=== PATIENT | female | born 1945 | race Caucasian/White ===

== ENCOUNTER 2018-08-25 08:55 | Inpatient (IN) | payer OTHER ==
[2018-08-19 15:36] LABS: Absolute Lymphocytes (CBC) 1.4 K/uL (0.7-4.9); Absolute Monocytes 0.5 K/uL (0.1-1.3); Absolute Neutrophil 2.9 K/uL (1.8-8.0); Basophils % 1.6 % (0-1.3); Eosinophils % 4.8 % (0-4.4); Hematocrit 32.6 % (36.0-45.0); Lymphocytes % 27.5 % (15.3-44.8); MPV 9.7 fL (7.6-11.3); Monocytes % 9.9 % (3.3-12.3); RBC Red Blood Cell Count 3.89 M/uL (3.86-4.86)
--- NOTE | 2018-08-19 15:45 | RAD REPORT ---
EXAM DESCRIPTION: RAD - Chest Pa And Lat (2 Views) - 08/19/2018 3:12 pm CLINICAL HISTORY: preop Chest pain. COMPARISON: Chest Single View dated 03/14/2017; Chest Single View dated 10/25/2016; CHEST PA AND LAT 2 VIEW dated 01/09/2012; CHEST SINGLE VIEW dated 01/24/2010 FINDINGS: The lungs are clear. The heart is normal in size. No displaced fractures. Moderate axial h iatal hernia. IMPRESSION: Moderate axial hiatal hernia.
[2018-08-19 15:49] LABS: Potassium 3.6 mmol/L (3.5-5.1)
--- NOTE | 2018-08-24 11:22 | EKG ---
Test Date: 2018-08-19 Test Time: 14:59:02 Dynamometer Tuner: ASHISH MEASUREMENT RESULTS: Intervals: Rate: 71 IA: 220 QRSD: 74 QT: 378 QTc: 410 [place]: P: 53 IA: 220 QRS: 64 T: 50 INTERPRETIVE STATEMENTS: Sinus rhythm with 1st degree AV block Otherwise normal ECG Compared to ECG 03/14/2017 21:30:38 First degree AV block now present Electronically Signed On 08-19-18 16:25:25 CDT by Ray Cheung
--- OUTSIDE RECORDS SUMMARY | 2018-08-25 08:58 | XMS REPORT | Clinical Summary ---
:1945 Author Organization [facility] Address [address] [place] [address] Care Team Providers Name Role Phone Misbah Osorio MD Primary Care Provider Allergies No Known Allergies Medications Medication Sig Dispensed Refills Start Date End Date Status metFORMIN (GLUCOPHAGE) Take 500 mg by 0 Active 500 MG tablet mouth 2 (two) times a day with meals. Hold the morning of surgery . Takes 1 tab in AM and 1/2 tab at night. PARoxetine (PAXIL) 20 Take 20 mg by 0 Active MG tablet mouth every morning. atorvastatin (LIPITOR) Take 40 mg by 0 Active 40 MG tablet mouth daily. aspirin (ECOTRIN) 81 Take 81 mg by 0 Active MG enteric coated mouth daily. tablet traMADol (ULTRAM) 50 Take 50 mg by 0 Active mg tablet mouth every 6 (six) hours as needed for moderate pain. omeprazole (PriLOSEC) Take 40 mg by 0 Active 40 MG capsule mouth daily. 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 Last Filed Vital Signs Not on file Plan of Treatment Health Maintenance Due Date Last Done Comments BREAST CANCER SCREENING 1994 COLON CANCER SCREENING 1994 SHINGLES VACCINES (#1) 1994 65+ PNEUMOCOCCAL VACCINE (1 of 2 - PCV13) 2009 PNEUMOCOCCAL POLYSACCHARIDE VACCINE AGE 65 AND OVER 2009 INFLUENZA VACCINE 12/16/2018 03/23/2017 Implants Implanted Type Area Grinder Mill Operator Device Shelf Model / Identifier Expiration Serial / Date Lot Clip Ligtng Weck Hemoclip Plus W/ Tape Ti Med - [id number] Medical N/A: N/A TELEFLEX MEDICAL [id number] / Implanted: 03/17/2017 (Quantity not on file) Clips for / Internal Use Clip Ligtng Weck Hemoclip Plus W/ Tape Ti Lg - [id number] Medical N/A: N/A TELEFLEX MEDICAL [id number] / Implanted: 03/17/2017 (Quantity not on file) Clips for / Internal Use Clip Ligtng Weck Hemoclip Plus W/ Tape Ti Lg - [id number] Medical N/A: N/A TELEFLEX MEDICAL [id number] / Implanted: 03/17/2017 (Quantity not on file) Clips for / Internal Use Fibrin Sealant Patch Evarrest - [id number] Surgical N/A: N/A ETHICON 01/12 [id number] / Implanted: 03/17/2017 (Quantity not on file) Implants; ENDO-SURGERY / Expanders; 1728 Extenders; Surgical Wires Results Not on fileafter 08/24/2017 Insurance Payer Benefit Plan / Group Subscriber ID Type Phone Address HUMANA MEDICARE HUMANA MEDICARE PPO/PFFS/ERS [facility] xxxxxxxxx PPO ([place] [place] [id number] Advance Directives Patient has advance care planning documents on file. For more information, please contact:Raman [place] [address]
[2018-08-25] MEDS ORDERED: NA CHLORIDE 0.9% 1,000 ML ONE (09:19)
[2018-08-25] MEDS ORDERED: CEFAZOLIN/SWI 1gm 1 GM/10 ML SYR ONE (09:19)
[2018-08-25] MEDS ORDERED: BUPIVACAINE 0.5% PF 10 ML VIAL ONE (09:26)
[2018-08-25] MEDS ORDERED: ROCURONIUM 50 MG/5 ML VIAL IV ONE (09:46)
[2018-08-25] MEDS ORDERED: FENTANYL CITR 100 MCG/2 ML ONE ×2 (09:53→10:45)
[2018-08-25] MEDS ORDERED: PROPOFOL 200 MG/20 ML VIAL IV ONE (09:53)
[2018-08-25] MEDS ORDERED: LIDOCAINE 2% MPF 5 ML VIAL ONE (09:53)
[2018-08-25] MEDS ORDERED: MIDAZOLAM HCL 2 MG/2 ML INJ ONE (09:53)
[2018-08-25] MEDS ORDERED: EPHEDRINE SULF 50 MG/ML VIAL ONE (10:00)
[2018-08-25] MEDS ORDERED: ONDANSETRON 4 MG/2 ML VIAL ONE (10:06)
[2018-08-25] MEDS ORDERED: Ringers Lactate 1,000 ML IV ONE (11:31)
[2018-08-25] MEDS ORDERED: ONDANSETRON 4 MG/2 ML VIAL IV PRN (11:54)
[2018-08-25] MEDS ORDERED: HYDROCODONE/APAP 7.5/325 MG TAB PO PRN (11:54)
--- NOTE | 2018-08-25 11:54 | P.BOP ---
Preoperative diagnosis: large incarcerated with large bowel incisional ventral hernia Postoperative diagnosis: same plus extensive intrabdominal adhesions, multiple ventral hernias Primary procedure: Exploratory laparoromy, extensive lap and open lysis of adhesions Secondary procedure: Repair of incisional incercerated upper and mid ventral hernias with mesh Other procedure(s): Laparoscopic assisted Dip Painter: CHALINO PATEL (MACHINE OPERATOR HOP WORKER) Estimated blood loss: <50cc Specimen: hernia sac Findings: Extensive intrabdominal adhesions, incarcerated transverse colon and omentu Anesthesia: General Complications: None Implants: ventralight ST mesh with echo PS [id number] Transferred to: Recovery Room Condition: Good
[2018-08-25] MEDS ORDERED: GLYCOPYRROLATE 0.2 MG/ML SYR ONE (11:55)
[2018-08-25] MEDS ORDERED: NEOSTIGMINE 1 MG/ML -10 ML VIAL ONE (11:56)
[2018-08-25] MEDS ORDERED: KETOROLAC 30 MG/ML INJ ONE (11:56)
[2018-08-25] MEDS ORDERED: MORPHINE 10 MG/ML VIAL ONE (12:12)
[2018-08-25] MEDS: MORPHINE 4 MG/ML SYR IV PRN ×3 (12:50→21:42)
[2018-08-25] MEDS ORDERED: MORPHINE 2 MG/ML SYR IV ONE (13:25)
[2018-08-25] MEDS: MORPHINE 4 MG/ML SYR ONE ×2 (13:40→13:45)
[2018-08-25] MEDS: FENTANYL CITR 100 MCG/2 ML ONE ×2 (13:51→13:59)
[2018-08-25] MEDS: NA CHLORIDE 0.9% 1,000 ML IV SCH (14:51)
[2018-08-25] MEDS: CEFOXITIN/SWI 1gm 1 GM/10 ML SYR IV SCH ×2 (15:05→21:37)
[2018-08-25 15:29] VITALS: BMI 26.1
[2018-08-26] MEDS: NA CHLORIDE 0.9% 1,000 ML IV SCH ×5 (01:08→22:33)
[2018-08-26] MEDS: CEFOXITIN/SWI 1gm 1 GM/10 ML SYR IV SCH (01:09)
[2018-08-26] MEDS: MORPHINE 4 MG/ML SYR IV PRN ×5 (01:13→20:59)
[2018-08-26] MEDS: PANTOPRAZOLE 40MG TABLET PO SCH (05:35)
[2018-08-26 05:44] LABS: Absolute Lymphocytes (CBC) 0.4 K/uL (0.7-4.9); Absolute Monocytes 1.5 K/uL (0.1-1.3); Absolute Neutrophil 9.8 K/uL (1.8-8.0); Basophils % 0.4 % (0-1.3); Eosinophils % 0.1 % (0-4.4); Hematocrit 28.7 % (36.0-45.0); Lymphocytes % 3.7 % (15.3-44.8); MPV 8.9 fL (7.6-11.3); Monocytes % 12.6 % (3.3-12.3); RBC Red Blood Cell Count 3.37 M/uL (3.86-4.86)
[2018-08-26 05:50] LABS: Potassium 3.9 mmol/L (3.5-5.1)
[2018-08-26 06:45] LABS: Urine Appearance CLEAR; Urine Bilirubin NEGATIVE (NEG); Urine Blood NEGATIVE (NEG); Urine Color YELLOW; Urine Glucose 1+ (NEG); Urine Protein NEGATIVE (NEG); Urine Urobilinogen 0.2 mg/dL (0.2-1.0)
[2018-08-26 06:48] LABS: Urine Microscopic Reflex NO UMIC
--- NOTE | 2018-08-26 23:27 | P.PN ---
Subjective Date of Service: 08/26/18 Subjective: Ambulating, Improving, Doing well Review of Systems General: Unremarkable Eyes: Unremarkable ENT: Unremarkable Respiratory: Unremarkable Cardiovascular: Unremarkable Gastrointestinal: Melena (no), Hematochezia (no) Genitourinary: Unremarkable Physical Examination - Vital Signs Temperature: 99.2 F Blood Pressure: 123/67 Pulse: 88 Respirations: 16 Pulse Ox (%): 92 - Physical Exam General: Alert, In no apparent distress, Oriented x3, Cooperative HEENT: PERRLA, EOMI Neck: Supple Respiratory: Normal air movement Cardiovascular: No edema, Normal pulses Gastrointestinal: Hypoactive, Other (intact surgical site) Integumentary: No erythema, No warmth, No cyanosis Neurological: Normal speech - Studies Laboratory Data (last 24 hrs) 08/26/18 04:56: Sodium 144, Potassium 3.9, BUN 19 H, Creatinine 0.91, Glucose 214 H 08/26/18 04:56: WBC 11.8 H D, Hgb 8.6 L, Hct 28.7 L, Plt Count 227 D Assessment And Plan - Plan OOB IS Clear liquid PAin controll FS with coverage resume home meds
[2018-08-26] MEDS ORDERED: D50W 25 GM/50 ML SYRINGE IV PRN (23:53)
[2018-08-26] MEDS ORDERED: GLUCAGON 1 MG/VIAL IM PRN (23:53)
[2018-08-27] MEDS: MORPHINE 4 MG/ML SYR IV PRN ×2 (04:12→12:27)
[2018-08-27 04:25] VITALS: O2SAT 95
[2018-08-27] MEDS: PANTOPRAZOLE 40MG TABLET PO SCH (06:33)
[2018-08-27] MEDS: INSULIN -REGULAR HUMAN 50 UNIT/0.5 ML ML SQ SCH ×3 (07:30→16:30)
[2018-08-27] MEDS ORDERED: LISINOPRIL 10 MG TAB PO SCH (09:00)
[2018-08-27] MEDS ORDERED: PARoxetine HCl 10 MG TAB PO SCH (09:00)
[2018-08-27] MEDS ORDERED: hydroCHLOROthiazide 12.5 MG CAP PO SCH (09:00)
[2018-08-27] MEDS ORDERED: GABAPENTIN 100 MG CAP PO SCH (09:00)
[2018-08-27] MEDS: NA CHLORIDE 0.9% 1,000 ML IV SCH ×2 (09:02→14:00)
--- NOTE | 2018-08-27 14:39 | RAD REPORT ---
EXAM DESCRIPTION: RAD - Chest Pa And Lat (2 Views) - 08/27/2018 2:29 pm CLINICAL HISTORY: Pneumonia COMPARISON: August 19 TECHNIQUE: PA and lateral views of the chest were obtained. FINDINGS: The lungs are clear of failure, infiltrate or mass. Patient has a prominent baseline inter stitial pattern that matches the comparison. Moderate-size hiatal hernia again noted. Heart size is normal and central vasculature is within normal limits. No pleural effusion or pneu mothorax seen. No acute bony finding noted. No aortic abnormality. IMPRESSION: No acute cardiopulmonary process. Chest findings are not significantly different from A pril 4 imaging.
[2018-08-27 17:44] VITALS: BP 135/76; TEMP 98.8
--- NOTE | 2018-08-29 09:48 | CON ---
Date of Consultation: 08/27/2018 Reason For Consultation: Hypoxemia. History: A 72-year-old, the patient, who was found to have episodes of hypoxia measured by digital o ximetry. Patient is postop for her abdominal hernia repair. Patient denied any chest pain, shortnes s of breath, any other symptoms at the time of examination. No history of hemoptysis. Past Medical History: Positive for diabetes and hypertension. Physical Examination: General: Reveals a 72-year-old female, fully alert and oriented. HEENT: Negative. Neck: Supple. JVD negative. Chest: Clear. Heart: Regular. Abdomen: Soft postoperative. Extremities: No edema. Assessment: 1.Hypoxia. 2.Status post abdominal hernia surgery. Plan: The patient was taken off O2 completely for 15 minutes. Her saturation was found to be 97. H er chest x-ray repeat is negative in view of no symptoms and normal oxygen saturation currently. Luis Miguel y likely, patient had mucus plugging or other postoperative transient ventilatory issue. Patient was observed and as she does not have any symptoms, patient was advised discharge and she was told to follow up in the office in case she has a ny pulmonary symptoms. RRK/MODL Voice ID: [id number] Report ID: [id number]
--- NOTE | 2018-08-31 05:29 | OP ---
Date of Procedure: 08/25/2018 Surgeon: Vitor Connell MD Duplicating Machine Servicer: JULIO Arenas. Preoperative Diagnosis: Large incarcerated with large bowel incisional ventral hernia. Postoperative Diagnosis: Large incarcerated with large bowel incisional ventral hernia, extensive in tra-abdominal adhesions, multiple ventral hernias. Procedures: Exploratory laparotomy, extensive laparoscopic and open lysis of adhesions, repair of mu ltiple incisional incarcerated upper and mid ventral hernias with mesh, laparoscopically assist. Estimated Blood Loss: Less than 50 cc. Specimen: Hernia sac. Findings: Extensive intra-abdominal adhesions. We took a little more than an hour just doing an adh esion . The patient has multiple hernias in the mid abdomen and then upper abdomen. These hernias fascia were repaired individually, although we used 1 incision on top. The hernia, one of t hem has transverse colon coming through it with a lot of adhesions through. That slowly needs to be released and brought back into the abdominal cavity. In order for us to do this even though we made a small incision at the beginning, we noticed there were 2 hernias, so we have to extend the incision and do a formal laparotomy since the adhesions were a large. Some of the adhesions, the most diffic ult one in the lower abdomen to avoid having to open the entire incision, we did it laparoscopically after we did a diagnostic lap. Also laparoscopic technique was used to put the mesh underneath with use of Ventralight ST mesh with Echo Positioning System, about 25 x 20 cm. Indications: This is the case of a female, who comes to us with multiple inflations. She has hiatal hernia repair in the past, first laparoscopic, then it got complicated and she has to have an open w ith a midline incision. Then, she noticed a bulging on the abdomen, diagnosed with incarcerated vent ral hernias with large bowel on it. The benefits, alternatives, and risks of repair were fully expla ined to the patient, which include but are not limited to infection, bleeding, damage to adjacent str uctures, anesthesia complication, recurrence, [place], and even . She also understands this may not relieve the symptoms, she might need more than one surgical intervention. She understand we most lik jamie going to have to use mesh in that area. She had the area opened several times. We expect that t o show some weak fascia. She understands the pros and cons of mesh placement. It was explained to h er until all the answer we given to her questions. She also understands that we may have extensive a dhesions, may even do a bowel resection, hopefully not, but she is aware of that. She understands in the future it is important to use abdominal binder for a year, no heavy lifting, not gaining weight. She signed a consent. Description Of Procedure: The patient was brought to the operating room, placed in supine position. Anesthesia was done without complication. Abdominal area was prepped and draped in a sterile fashio n. A midline incision was made. Incision was carried down to fascia. Immediately, we noticed a lar ge hernia sac present, large bowel, transverse colon, attached to it. So, we carefully have to relea se the adhesions of the large bowel to the hernia sac and then after that, we noticed the fascial edg es and we have to clean all the fascial edges and we noticed once again extensive adhesions inside. We spent more than an hour just doing adhesions there, just slowly getting they, and be careful not t o injure the large bowel, which was attached to it. Most of adhesions were removed open with the for mal laparotomy, although some other ones were done laparoscopically with the LigaSure since we were g oing to do anyway laparoscopic to do a mesh placement. Once we relieved those adhesions there, we pr oceeded to inspect the rest of the abdomen. We noticed the patient has another hernia in the upper v entral region, just below the xiphoid process. That area was also opened in the skin and we visualiz ed the fascial edges. We removed the hernia sac. That one mainly had the falciform ligament regulatory affairs portfolio leader d to that area. We carefully reduced it back into the abdominal cavity. The fascial edges were clos ed with #2 nylon in a [id number] fashion multiple times. Then, we went back to the large ventra l region, where we have the main hernia there and close that defect and approximated the defects with #2 nylon in a vweqrf-ri-mqgwh fashion multiple times. Before we tied those tissues, we were able to drop in a Ventralex ST with an Echo Positioning System about 25 x 20 cm, that will cover the defects by about 5 cm with 5 cm margins at least. After that, we proceeded to also put two 5-mm trocars, si nce we have access and we can see with laparotomy, we put this directly into the abdomen making sure there was no injury to any bowel. That allowed me to tie all the stitches on the ventral region exce pt 1 which is the where the catheter with the balloon insufflation is coming through, that will be ti ed at the end. That allowed me to obtain pneumoperitoneum, put the cameras #5 then in this case thro ugh the abdomen and then inflate the balloon positioning system, this goes against the abdominal wall . When we noticed that the falciform ligament, it was just in our way, adhesions in that area, so we had to take care of those with LigaSure. Also some adhesions in the lower abdomen, that were on our way, not allowing the mesh to lie nice and flat, were also removed and then we removed those adhesio ns and then we proceeded then to put the mesh, it looked nice and flat. The mesh was secured in plac e with a capture, a fixation device. Then, when we had enough in that area, we proceeded to deflate the balloon, removed the balloon completely out, and then basically continued the fixation of the mes h into the fascia. The mesh looked nice and flat. No bowel in between. The area of the lysis of ad hesions looked intact. No bleeding. No enterotomies. At that moment, I proceeded to remove the tro cars under direct vision, deflated the pneumoperitoneum, closed the last stage that we have in the fa scia, irrigated subcu tissue. We have defect in the middle that we afraid she is going to form a ser wanda. So, we tried to approximate that area with 0 chromic the best we can to obliterate this space, although some of that space created by the hernia itself. The skin then was approximated with staple s. Sponge count and instrument counts were correct. The patient tolerated the procedure well. The patient was sent to recovery in stable condition. This patient will be admitted to the [facility] she will require pain control and also she is going to develop an ileus, so we are going to advance diet slowly. GIOVANNI/JAMA Voice ID: [id number] Report ID: [id number]
== END 2018-08-27 19:21 | disposition home or self-care (01) | DRG 336 ==
LOC: OR 08:55 → 2ND 13:32
PROVIDERS: ADMIT Surgery; ATTEND Surgery
PROC: 0DNE0ZZ Release Large Intestine, Open Approach (ICD-10-PCS; 2018-08-25)
PROC: 0WUF0JZ Supplement Abdominal Wall with Synthetic Substitute, Open Approach (ICD-10-PCS; 2018-08-25)
PROC: 0DNL0ZZ Release Transverse Colon, Open Approach (ICD-10-PCS; principal; 2018-08-25 11:30)
DX: K43.2 Incisional hernia without obstruction or gangrene (principal); K43.6 Other and unspecified ventral hernia with obstruction, without gangrene; K56.50 Intestinal adhesions [bands], unspecified as to partial versus complete obstruction; J95.89 Other postprocedural complications and disorders of respiratory system, not elsewhere classified; Z86.73 Personal history of transient ischemic attack (TIA), and cerebral infarction without residual deficits; E11.9 Type 2 diabetes mellitus without complications; Z79.84 Long term (current) use of oral hypoglycemic drugs; I10 Essential (primary) hypertension; R09.02 Hypoxemia; Y83.8 Other surgical procedures as the cause of abnormal reaction of the patient, or of later complication, without mention of misadventure at the time of the procedure; Y92.230 Patient room in hospital as the place of occurrence of the external cause
CPT/HCPCS: 36415; 71046; 80048; 81003; 82962; 85025; 88302; 93005; 97116; 97163; 97530; J0690; J2250; J2270; J2405; J2704; J2710; J3010; J7030

== ENCOUNTER 2020-06-21 09:53 | Day surgery (SDC) | payer OTHER ==
--- OUTSIDE RECORDS SUMMARY | 2020-06-21 10:25 | XMS REPORT | Clinical Summary ---
:1945 Author Organization [facility] Address [address] [place] [address] Care Team Providers Name Role Phone Misbah Osorio MD Primary Care Provider Allergies No Known Active Allergies Medications Medication Sig Dispensed Refills Start [...] volvulus 03/15/2017 Hiatal hernia 02/14/2016 Immunizations Name Administration Dates Next Due FLUCELVAX QUAD PF 03/23/2017 Surgical History Surgery Date Site/Laterality Comments HYSTERECTOMY BLADDER SUSPENSION APPENDECTOMY REPAIR, HIATAL HERNIA, 02/14/2016 Abdomen/N/A Procedure : LAPAROSCOPIC LAPAROSCOPIC HIATAL HERNIA RE PAIR; Surgeon: Keith Rodriguez MD; Location: [facility]; Servic e: General; Laterality: N/A; FUNDOPLICATION, GABE, 02/14/2016 Abdomen/N/A Procedur e: LAPAROSCOPIC LAPAROSCOPIC FUNDOPLICATION a nd REPAIR HIATAL HERNIA; Surgeon: Keith Rodriguez MD; Location: [facility]; Service: General ; Laterality: N/A; REPAIR, HERNIA, DIAPHRAGMATIC 03/17/2017 Abdomen/N/A Pr ocedure: EXPLORATRY LAPAROTOMY OPEN HIATAL HERNIA REPAIR WITH JESSENIA ROPEXY ; Surgeon: Keith Rodriguez MD; Location: [facility] OR; Servic e: General; Laterality: N/A; Medical devices from this surgery are in t he Implants section. Medical History Medical History Date Comments Anesthesia no chest pain or sob ,npap/nfhap Anesthesia nhap/nfhap; denies c p/sob; crowns secure, dental bridge Wears glasses and contacts Elevated cholesterol on medication Acid reflux on medication Hypertension on medication Hiatal hernia some difficulty swal lowing Loss of bladder control and loss of ilsa l control. Anxiety Headache and migraines Peptic ulceration Diabetes mellitus (HCC) avg bs 110, last a1c 7, on medication Stroke (HCC) x 2 2008 and 2010TI As Social History Tobacco Use Types Packs/Day Years Used Date Never Smoker Tobacco Cessation: Counseling Given: No Alcohol Use Drinks/Week oz/Week Comments No Sex Assigned at Date Recorded Not on file Last Filed Vital Signs Not on file Plan of Treatment Health Maintenance Due Date Last Done Comments COVID-19 VACCINE (1 of 2) 1960 HEPATITIS C SCREENING 1962 BREAST CANCER SCREENING 1994 COLONOSCOPY SCREENING 1994 SHINGLES VACCINES (#1) 1994 65+ PNEUMOCOCCAL VACCINE (1 of 1 - PPSV23) 2009 INFLUENZA VACCINE 12/17/2019 03/23/2017 Implants Implanted Type Area Dialysis Social Worker Device Shelf Model / Identifier Expiration Serial / Date Lot Clip Ligtng Weck Hemoclip Plus W/ Tape Ti Med - [id number] Medica l N/A: N/A TELEFLEX MEDICAL [id number] / Implanted: 03/17/2017 at [facility] (Quantity not on file) Clips for / Internal Use Clip Ligtng Weck Hemoclip Plus W/ Tape Ti Lg - [id number] Medical N/A: N/A TELEFLEX MEDICAL [id number] / Implanted: 03/17/2017 at [facility] (Quantity not on file) Clips for / Internal Use Clip Ligtng Weck Hemoclip Plus W/ Tape Ti Lg - [id number] Medical N/A: N/A TELEFLEX MEDICAL [id number] / Implanted: 03/17/2017 at [facility] (Quantity not on file) Clips for / Internal Use Fibrin Sealant Patch Evarrest - [id number] Surgical N/A: N/A ETHICON 01/12/2019 [id number] / Implanted: 03/17/2017 at [facility] (Quantity not on file) Imp lants; ENDO-SURGERY / Expanders; 1728 Extenders; Surgical Wires Results Not on fileafter 06/21/2019 Insurance Payer Benefit Plan / Subscriber ID Effective Dates Phone Addre ss Type Group HUMANA MEDICARE HUMANA MEDICARE [id number] 2014-Present PPO PPO/PFFS/ERS [facility] ([place] [place] [id number] Advance Directives For more information, please contact: [phone] Type Date Recorded 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
[2020-06-21] MEDS ORDERED: NA CHLORIDE 0.9% 500 ML ONE (13:13)
[2020-06-21 16:40] LABS: Hematocrit 30.3 % (36.0-45.0)
[2020-06-21 18:19] VITALS: BP 129/72; TEMP 97.9; O2SAT 98; BMI 25.2
== END 2020-06-21 16:30 | disposition home or self-care (01) ==
LOC: DS 09:53
PROVIDERS: ATTEND Internal Medicine
DX: D64.9 Anemia, unspecified (principal)
CPT/HCPCS: 36415; 86900; 86850; 86901; 85018; 85014; 36430; P9016 ×2; J7040

== ENCOUNTER 2021-01-19 18:15 | Emergency (ER) | payer OTHER ==
[2021-01-19 20:22] LABS: Hematocrit 42.7 % (36.0-45.0); Lymphocytes % 13.5 % (15.3-44.8); MPV 8.5 fL (7.6-11.3); RBC Red Blood Cell Count 4.85 M/uL (3.86-4.86)
[2021-01-19] MEDS ORDERED: ACETAMINOPHEN 325 MG TABLET ONE (20:23)
[2021-01-19 20:44] LABS: ALT/SGPT 31 U/L (12-78); AST/SGOT 25 U/L (15-37); Alkaline Phosphatase 145 U/L (45-117); BUN Blood Urea Nitrogen 16 mg/dL (7-18); Bicarbonate 28 mmol/L (21-32); Bilirubin Direct < 0.1 mg/dL (0-0.2); Bilirubin Total 0.3 mg/dL (0.2-1.0); Glucose Level 184 mg/dL (74-106); Lipase 86 U/L (73-393); Potassium 4.5 mmol/L (3.5-5.1); Protein, Total 8.1 g/dL (6.4-8.2); Sodium Level 142 mmol/L (136-145)
[2021-01-19 20:58] LABS: SARS-COV-2 RT PCR NEGATIVE (NEGATIVE)
[2021-01-19 21:18] LABS: Urine Blood Negative (Negative); Urine Glucose Negative (Negative); Urine Protein 2+ (Negative); Urine Specific Gravity >=1.030 (1.005-1.030); Urine pH 5.5 (5.0-7.0)
[2021-01-19 21:54] LABS: Urine Amorphous Sediment 1+ /HPF (NONE SEEN); Urine Bacteria >50 /HPF (<20); Urine Mucus 2+ /HPF (NONE SEEN)
[2021-01-19] MEDS ORDERED: NA CHLORIDE 0.9% 1,000 ML ONE (23:24)
[2021-01-19] MEDS ORDERED: METOCLOPRAMIDE 10 MG/2mL INJ ONE (23:24)
[2021-01-19] MEDS ORDERED: DIPHENHYDRAMINE 50 MG/ML VIAL ONE (23:24)
[2021-01-19] MEDS ORDERED: CEFTRIAXONE/SWI 1gm 1 GM/10 ML SYR ONE (23:25)
--- NOTE | 2021-01-20 01:10 | EDPHYS ---
Physician Documentation [facility] Name: Love Jimenez Age: 75 yrs Sex: Female : 1945 Arrival Date: 01/19/2021 Time: 18:22 Bed 9 Private MD: ED Physician Robert Yarbrough HPI: 01/19 22:30 This 75 yrs old Female presents to ER via Wheelchair with complaints of mh7 Urinary Problem, Vomiting, Weakness. 22:30 The patient presents to the emergency department with nausea, that is moderate, mh7 vomiting, that is intermittent, described as clear fluid. Onset: The symptoms/episode began/occurred 3 day(s) ago. Possible causes: bad food exposure, possibly bad restaurant food. The symptoms are aggravated by nothing. The symptoms are alleviated by nothing. 22:30 Associated signs and symptoms: Pertinent positives: dysuria, nausea, vomiting, mh7 Headache, Pertinent negatives: abdominal pain, anorexia, belching, constipation, diarrhea, fever, flatulence, GI bleeding, hematuria, vaginal discharge. 22:30 Severity of symptoms: At their worst the symptoms were moderate 2 day(s) ago, in the [facility] emergency department the symptoms are unchanged. 22:30 Patient states that she started having nausea and vomiting 3 days ago after eating at a [facility] restaurant. She also reports flare up of migraine headache and dysuria. She denies any fever, chest pain, abdominal pain, cough, shortness of breath, diarrhea, dizziness, numbness/tingling, or weakness.. Historical: - Allergies: 19:47 No Known Allergies; kg - Home Meds: 19:47 tramadol 50 mg Oral tab 1 tab every 4 hours [Active]; gabapentin 300 mg oral tab twice kg a day [Active]; atorvastatin 40 mg Oral tab 1 tab once daily [Active]; glipizide 5 mg Oral tr24 1 tab [Active]; omeprazole 40 mg Oral cpDR 1 cap once daily [Active]; paroxetine HCl 20 mg Oral tab 1 tab once daily [Active]; metformin 500 mg Oral Tb24 1 tab once daily [Active]; lisinopril 10 mg Oral tab 1 tab once daily [Active]; hydrochlorothiazide 12.5 mg Oral cap 1 cap once daily [Active]; - PMHx: 19:47 Anxiety; Depression; Hernia; Hyperlipidemia; Hypertension; Ulcers; NIDDM; kg - PSHx: 19:47 Appendectomy; Total abdominal hysterectomy; Bladder suspension; Hiatal hernia; hernia kg repair; - Immunization history:: Adult Immunizations up to date, Client reports receiving the 2nd dose of the Covid vaccine, Date received: August 22, 2020 [facility] Client reports receiving the 1st dose of the Covid vaccine, July 25, 2020 [facility]. - Social history:: Smoking status: Patient denies any tobacco usage or history of. ROS: 22:30 Constitutional: Negative for fever, chills, and weight loss, Eyes: Negative for injury, mh7 pain, redness, and discharge, ENT: Negative for injury, pain, and discharge, Neck: Negative for injury, pain, and swelling, Cardiovascular: Negative for chest pain, palpitations, and edema, Respiratory: Negative for shortness of breath, cough, wheezing, and pleuritic chest pain, Back: Negative for injury and pain, MS/Extremity: Negative for injury and deformity, Skin: Negative for injury, rash, and discoloration, Psych: Negative for depression, anxiety, suicide ideation, homicidal ideation, and hallucinations, Allergy/Immunology: Negative for hives, rash, and allergies, Endocrine: Negative for neck swelling, polydipsia, polyuria, polyphagia, and marked weight changes, Hematologic/Lymphatic: Negative for swollen nodes, abnormal bleeding, and unusual bruising. Exam: 22:30 Constitutional: This is a well developed, well nourished patient who is awake, alert, mh7 and in no acute distress. Head/Face: Normocephalic, atraumatic. Eyes: Pupils equal round and reactive to light, extra-ocular motions intact. Lids and lashes normal. Conjunctiva and sclera are non-icteric and not injected. Cornea within normal limits. Periorbital areas with no swelling, redness, or edema. Neck: Trachea midline, no thyromegaly or masses palpated, and no cervical lymphadenopathy. Supple, full range of motion without nuchal rigidity, or vertebral point tenderness. No Meningismus. Chest/axilla: Normal chest wall appearance and motion. Nontender with no deformity. No lesions are appreciated. Cardiovascular: Regular rate and rhythm with a normal S1 and S2. No gallops, murmurs, or rubs. Normal PMI, no JVD. No pulse deficits. Respiratory: Lungs have equal breath sounds bilaterally, clear to auscultation and percussion. No rales, rhonchi or wheezes noted. No increased work of breathing, no retractions or nasal flaring. 22:30 Back: No spinal tenderness. No costovertebral tenderness. Full range of motion. Skin: Warm, dry with normal turgor. Normal color with no rashes, no lesions, and no evidence of cellulitis. MS/ Extremity: Pulses equal, no cyanosis. Neurovascular intact. Full, normal range of motion. Neuro: Awake and alert, GCS 15, oriented to person, place, time, and situation. Cranial nerves II-XII grossly intact. Motor strength 5/5 in all extremities. Sensory grossly intact. Cerebellar exam normal. Normal gait. Psych: Awake, alert, with orientation to person, place and time. Behavior, mood, and affect are within normal limits. 22:30 Abdomen/GI: Inspection: scar(s), are noted in the umbilical area, Bowel sounds: normal, in all quadrants, Palpation: abdomen is soft and non-tender, in all quadrants, Rectal exam: the exam is deferred, because of patient request, Indicators: McBurney's point is not tender, Elkins's sign is negative, Rovsing's sign is negative, Obturator sign is negative, Psoas sign is negative, Liver: no appreciated palpable abnormalities, Hernia: not appreciated. Vital Signs: 19:45 BP 182 / 96; Pulse 89; Resp 18; Temp 98.0; Pulse Ox 100% on R/A; kg 19:45 Weight 77.11 kg (R); Height 5 ft. 9 in. (175.26 cm) (R); Pain 10/10; kg 23:41 BP 165 / 93; Pulse 85; Resp 18; Pulse Ox 100% on R/A; Pain 6/10; lp1 01/20 01:28 BP 166 / 75; Pulse 72; Resp 18; Pulse Ox 100% on R/A; lp1 01/19 19:45 Body Mass Index 25.10 (77.11 kg, 175.26 cm) kg MDM: 01:05 Differential diagnosis: gastritis, pancreatitis, diverticulitis, UTI, Dehydration, mh7 Headache. Data reviewed: vital signs, nurses notes, old medical records, lab test result(s), cardiac enzymes, CBC, electrolytes, urinalysis, bacteruria, EKG, radiologic studies, CT scan, plain films. Data interpreted: Pulse oximetry: on room air is 100 %. Interpretation: normal. Counseling: I had a detailed discussion with the patient and/or guardian regarding: the historical points, exam findings, and any diagnostic results supporting the discharge/admit diagnosis, the presence of at least one elevated blood pressure reading (>120/80) during this emergency department visit, lab results, radiology results, the need for outpatient follow up, an ENT specialist, to return to the emergency department if symptoms worsen or persist or if there are any questions or concerns that arise at home. Response to treatment: the patient's symptoms have resolved after treatment, the patient's blood pressure is in an acceptable range, mental status has returned to baseline, the patient no longer shows bradycardia, the patient is not short of breath, the patient is not tachycardic, the patient's pain is gone, the patient's temperature has normalized. 01:[address] [facility] 01/19 19:53 Order name: Basic Metabolic Panel; Complete Time: 22:04 01/19 19:53 Order name: CBC with Diff; Complete Time: 22:04 01/19 19:53 Order name: Hepatic Function; Complete Time: 22:04 01/19 19:53 Order name: Lipase; Complete Time: 22:04 01/19 20:59 Order name: COVID-19/FLU A+B; Complete Time: 22:04 [facility] 01/19 21:18 Order name: Urine Microscopic Only 01/19 21:18 Order name: Urine Dipstick-Ancillary; Complete Time: 22:04 [facility] 01/19 21:19 Order name: Urine Microscopic Only; Complete Time: 22:04 [facility] 01/19 21:55 Order name: Urine Culture [facility] 01/19 22:39 Order name: CT Head Brain wo Cont [facility] 01/19 22:39 Order name: CT Abd/Pelvis - IV Contrast Only [facility] 01/19 22:39 Order name: Troponin (emerg Dept Use Only); Complete Time: 23:43 [facility] 01/19 19:53 Order name: IV Saline Lock; Complete Time: 21:28 kg 01/19 19:53 Order name: Labs collected and sent; Complete Time: 21:28 01/19 22:39 Order name: EKG - Nurse/Tech; Complete Time: 23:41 [facility] Administered Medications: 01/19 22:52 Drug: Tylenol 650 mg Route: PO; kg 23:41 Drug: NS 0.9% 1000 ml Route: IV; Rate: 1000 ml; Site: right antecubital; 1 01/20 01:08 Follow up: IV Status: Completed infusion; IV Intake: 1000ml [facility] 01/19 23:41 Drug: Rocephin (cefTRIAXone) 1 grams Route: IV; Rate: per protocol; Site: right lp1 antecubital; 01/20 01:08 Follow up: IV Status: Completed infusion; IV Intake: 10ml [facility] 01/19 23:41 Drug: Reglan (metoCLOPramide) 10 mg Route: IVP; Site: right antecubital; 1 01/20 01:07 Follow up: Response: Marked relief of symptoms [facility] 01/19 23:41 Drug: Benadryl (diphenhydrAMINE) 25 mg Route: IVP; Site: right antecubital; [facility] 01/20 01:07 Follow up: Response: Marked relief of symptoms [facility] Disposition Summary: 01/20/21 01:09 Discharge Ordered Location: Home [facility] Problem: new [facility] Symptoms: have improved [facility] Condition: Stable [facility] Diagnosis - UTI/ Urinary tract infection, site not specified mh7 - Nausea with vomiting, unspecified 7 - Chronic maxillary sinusitis 7 - Headache [facility] Followup: [facility] - With: Private Physician - When: 1 - 2 days - Reason: Worsening of condition, Recheck today's complaints, Continuance of care, Re-evaluation by your physician Followup: [facility] - With: Carol Arnett MD - When: 1 - 2 days - Reason: Worsening of condition, Recheck today's complaints Discharge Instructions: - Discharge Summary Sheet 7 - Sinusitis, Adult, [id number] 7 - Nausea and Vomiting, Adult, [id number] 7 - Urinary Tract Infection, Adult, [id number] [facility] - General Headache Without Cause, Mfwe-[id number] [facility] Forms: - Medication Reconciliation Form [facility] - Thank You Letter [facility] - Antibiotic Education 7 - Prescription Opioid Use [facility] Prescriptions: - ondansetron 4 mg Oral tablet,disintegrating - place 1 tablet by TRANSLINGUAL route every 8 hours As needed; 10 tablet; [facility] Refills: 0, Product Selection Permitted - Cephalexin 500 mg Oral Capsule - take 1 capsule by ORAL route every 12 hours for 7 days; 14 capsule; Refills: 0, [facility] Product Selection Permitted - Pyridium 200 mg Oral Tablet - take 1 tablet by ORAL route every 8 hours for 3 days; 9 tablet; Refills: 0, [facility] Product Selection Permitted Signatures: Dispatcher [employer] EDMS Kamilah Diaz, URIEL RN 1 Robert Yarbrough MD MD 7 Albertina Shankar RN RN kg Corrections: (The following items were deleted from the chart) 01/19 19:52 19:47 PSHx: Unable to Obtain; kg kg 20:13 20:01 Influenza Screen (A \T\ B)+BA.LAB.BRZ ordered. EDMS EDMS 20:14 19:53 CORONAVIRUS+MR.LAB.BRZ ordered. EDMS EDMS
--- NOTE | 2021-01-20 01:10 | ER ---
Nurse's Notes [facility] Name: Love Jimenez Age: 75 yrs Sex: Female : 1945 Arrival Date: 01/19/2021 Time: 18:22 Bed 9 Private MD: Diagnosis: UTI/ Urinary tract infection, site not specified;Nausea with vomiting, unspecified;Chronic maxillary sinusitis;Headache Presentation: 01/19 19:45 Chief complaint: Patient states: Vomiting, headache since Thursday. Coronavirus kg screen: Vaccine status: Patient reports receiving the 2nd dose of the covid vaccine. Moderna Patient reports receiving the 1st dose of the Covid vaccine. Moderna Client presents with at least one sign or symptom that may indicate coronavirus-19. Standard/surgical mask placed on the client. Provider contacted for isolation considerations. Ebola Screen: Patient negative for fever greater than or equal to 101.5 degrees Fahrenheit, and additional compatible Ebola Virus Disease symptoms Patient denies exposure to infectious person. Patient denies travel to an Ebola-affected area in the 21 days before illness onset. Initial Sepsis Screen: Does the patient meet any 2 criteria? No. Patient's initial sepsis screen is negative. Does the patient have a suspected source of infection? No. Patient's initial sepsis screen is negative. Risk Assessment: Do you want to hurt yourself or someone else? Patient reports no desire to harm self or others. Onset of symptoms was January 16, 2021. 19:45 Method Of Arrival: Wheelchair kg 19:45 Acuity: MONICA 3 kg Historical: - Allergies: 19:47 No Known Allergies; kg - Home Meds: 19:47 tramadol 50 mg Oral tab 1 tab every 4 hours [Active]; gabapentin 300 mg oral tab twice kg a day [Active]; atorvastatin 40 mg Oral tab 1 tab once daily [Active]; glipizide 5 mg Oral tr24 1 tab [Active]; omeprazole 40 mg Oral cpDR 1 cap once daily [Active]; paroxetine HCl 20 mg Oral tab 1 tab once daily [Active]; metformin 500 mg Oral Tb24 1 tab once daily [Active]; lisinopril 10 mg Oral tab 1 tab once daily [Active]; hydrochlorothiazide 12.5 mg Oral cap 1 cap once daily [Active]; - PMHx: 19:47 Anxiety; Depression; Hernia; Hyperlipidemia; Hypertension; Ulcers; NIDDM; kg - PSHx: 19:47 Appendectomy; Total abdominal hysterectomy; Bladder suspension; Hiatal hernia; hernia kg repair; - Immunization history:: Adult Immunizations up to date, Client reports receiving the 2nd dose of the Covid vaccine, Date received: August 22, 2020 [facility] Client reports receiving the 1st dose of the Covid vaccine, July 25, 2020 [facility]. - Social history:: Smoking status: Patient denies any tobacco usage or history of. Screenin:41 Abuse screen: Denies threats or abuse. Denies injuries from another. Nutritional lp1 screening: No deficits noted. Tuberculosis screening: No symptoms or risk factors identified. Fall Risk Total Awad Fall Scale indicates High Risk Score (45 or more points). Fall prevention measures have been instituted. Side Rails Up X 2 As available patient and family educated on Fall Prevention Program and Strategies. Assessment: 23:35 General: Appears in no apparent distress. Behavior is appropriate for age. Pain: lp1 Complains of pain in head Pain currently is 7 out of 10 on a pain scale. Neuro: Level of Consciousness is awake, alert, obeys commands, Oriented to person, place, situation. Cardiovascular: Patient's skin is warm and dry. Respiratory: Respiratory effort is even, unlabored. GI: Abdomen is non-distended, Reports nausea. : Reports burning with urination. EENT: No signs and/or symptoms were reported regarding the EENT system. Derm: Skin is thin, Skin is dry, Skin is normal. Musculoskeletal: No deficits noted. 01/20 01:27 Reassessment: Patient appears in no apparent distress at this time. Patient is alert, lp1 oriented x 3, equal unlabored respirations, skin warm/dry/pink. Patient states feeling better. Patient states symptoms have improved. Vital Signs: 01/19 19:45 BP 182 / 96; Pulse 89; Resp 18; Temp 98.0; Pulse Ox 100% on R/A; kg 19:45 Weight 77.11 kg (R); Height 5 ft. 9 in. (175.26 cm) (R); Pain 10/10; kg 23:41 BP 165 / 93; Pulse 85; Resp 18; Pulse Ox 100% on R/A; Pain 6/10; lp1 01/20 01:28 BP 166 / 75; Pulse 72; Resp 18; Pulse Ox 100% on R/A; lp1 01/19 19:45 Body Mass Index 25.10 (77.11 kg, 175.26 cm) kg ED Course: 01/19 18:22 Patient arrived in ED. mr 19:47 Triage completed. kg 19:53 Inserted saline lock: 22 gauge in right antecubital area, using aseptic technique. kg ,using aseptic technique. BY Mykena Blood collected. 22:38 Robert Yarbrough MD is Attending Physician. [facility] 22:50 Kamilah Diaz, URIEL is Primary Nurse. lp1 23:19 CT Head Brain wo Cont In Process Unspecified. EDMS 23:19 CT Abd/Pelvis - IV Contrast Only In Process Unspecified. EDMS 23:41 Arm band placed on. lp1 23:42 Patient has correct armband on for positive identification. lp1 01/20 01:08 Carol Arnett MD is Referral Physician. [facility] 01:09 No provider procedures requiring assistance completed. lp1 01:27 IV discontinued, No redness/swelling at site. Pressure dressing applied. lp1 Administered Medications: 01/19 22:52 Drug: Tylenol 650 mg Route: PO; kg 23:41 Drug: NS 0.9% 1000 ml Route: IV; Rate: 1000 ml; Site: right antecubital; lp1 01/20 01:08 Follow up: IV Status: Completed infusion; IV Intake: 1000ml lp1 01/19 23:41 Drug: Rocephin (cefTRIAXone) 1 grams Route: IV; Rate: per protocol; Site: right lp1 antecubital; 01/20 01:08 Follow up: IV Status: Completed infusion; IV Intake: 10ml lp1 01/19 23:41 Drug: Reglan (metoCLOPramide) 10 mg Route: IVP; Site: right antecubital; lp1 01/20 01:07 Follow up: Response: Marked relief of symptoms lp1 01/19 23:41 Drug: Benadryl (diphenhydrAMINE) 25 mg Route: IVP; Site: right antecubital; lp1 01/20 01:07 Follow up: Response: Marked relief of symptoms lp1 Intake: 01:08 IV: 10ml; Total: 10ml. lp1 01:08 IV: 1000ml; Total: 1010ml. lp1 Outcome: 01:09 Discharge ordered by . 7 01:27 Discharged to home ambulatory, with family. lp1 01:27 Condition: good 01:27 Discharge instructions given to patient, Instructed on discharge instructions, follow up and referral plans. medication usage, Demonstrated understanding of instructions, follow-up care, medications, Prescriptions given X 3. 01:28 Patient left the ED. lp1 Signatures: Dispatcher [employer] EDWI SanonEne gonsalez Laura, RN RN lp1 Robert Yarbrough MD MD 7 Albertina Shankar RN RN kg Corrections: (The following items were deleted from the chart) 01/19 19:52 19:47 PSHx: Unable to Obtain; kg kg
[2021-01-20 01:50] VITALS: TEMP 98; O2SAT 100
[2021-01-20 01:53] VITALS: BP 166/75
--- NOTE | 2021-01-21 12:44 | RAD REPORT ---
EXAM DESCRIPTION: CT - Head Brain Wo Cont - 01/20/2021 5:34 am CLINICAL HISTORY: 75 years Female HEADACHE TECHNIQUE: Contiguous axial CT images obtained through the brain without IV contrast. This CT exam was performed according to our departmental dose-optimization program, which includes on e or more of the following dose reduction techniques: automated exposure control, adjustment of the m A and/or kV according to patient size, and/or use of iterative reconstruction technique. COMPARISON: No prior exams provided for comparison. FINDINGS: There is no intracranial hemorrhage, extraaxial collection, or evidence of acute transcort ical infarction. Scattered foci of low attenuation within the periventricular and subcortical white matter are most co mpatible with chronic microvascular disease. The ventricles and sulci are symmetric without midline s hift or mass effect. There is near complete opacification of the left maxillary sinus with radiodense material and dystrop hic mineralization, suggestive of fungal disease. The remainder of the paranasal sinuses and mastoid air cells are clear. IMPRESSION: Concern for left maxillary fungal sinusitis. No other acute findings. Mild chronic microvascular changes. Electronically signed by: Marva Morton MD 01/19/2021 11:30 PM CDT Due to temporary technical issues with the PACS/Fluency reporting system, reports are being signed by the in house radiologists without review as a courtesy to insure prompt reporting. The interpreting radiologist is fully responsible for the content of the report.
--- NOTE | 2021-01-21 13:35 | RAD REPORT ---
EXAM DESCRIPTION: CT - Abdomen Pelvis W Contrast - 01/20/2021 5:34 am CLINICAL HISTORY: Abd pain;Nausea / vomiting COMPARISON: None Available. TECHNIQUE: CT of the abdomen and pelvis performed following IV administration of iodinated contras t. This exam was performed according to our departmental dose-optimization program, which includes au tomated exposure control, adjustment of the mA and/or kV according to patient size and/or use of iter ative reconstruction technique. FINDINGS: Lung Bases: The visualized lung bases are clear. Bones: Multilevel degenerative endplate spondylosis, facet arthropathy, disc height narrowing. Mild d egenerative anterolisthesis of L4 over L5. Abdomen: Liver: The liver has normal size and decreased density. No intrahepatic biliary dilatation. Gallbladder: No calcified gallstones. Spleen, Pancreas, and Adrenal Glands: The spleen, pancreas, and adrenal glands are unremarkable. Kidneys: No hydronephrosis or obstructing calculus. Multiple bilateral renal cysts. Vasculature: Aortoiliac atherosclerosis. IVC is unremarkable. The portal vein is patent. The proxim al visceral and renal arteries are patent. Stomach: Large hiatal hernia. Other: No free intraperitoneal air. No free fluid or lymphadenopathy. Prior hernia repair. Pelvis: Bladder: Urinary bladder is decompressed. Bowel: No dilated loops of large or small bowel. Scattered diverticula of the colon. Appendix: Not individually identified. Pelvis: Prior hysterectomy. IMPRESSION: 1. No acute inflammatory or obstructive process identified. 2. Large hiatal hernia. 3. Hepatic steatosis. 4. Diverticulosis without evidence of acute diverticulitis. Electronically signed by: Hardeep Comer 01/19/2021 11:33 PM CDT Due to temporary technical issues with the PACS/Fluency reporting system, reports are being signed by the in house radiologists without review as a courtesy to insure prompt reporting. The interpreting radiologist is fully responsible for the content of the report.
--- NOTE | 2021-01-21 16:58 | EKG ---
Test Date: 2021-01-19 Test Time: 23:25:18 Yoke Setter: BRUNILDA MEASUREMENT RESULTS: Intervals: Rate: 74 KS: 178 QRSD: 76 QT: 382 QTc: 424 [place]: P: 69 KS: 178 QRS: 64 T: 44 INTERPRETIVE STATEMENTS: Normal sinus rhythm Normal ECG Compared to ECG 08/19/2018 14:59:02 First degree AV block no longer present Electronically Signed On 01-21-21 16:56:00 CDT by Vince Davis
== END 2021-01-20 01:28 | disposition home or self-care (01) ==
LOC: ER 18:15
DX: N39.0 Urinary tract infection, site not specified (principal); J32.0 Chronic maxillary sinusitis; R51.9 Headache, unspecified; I10 Essential (primary) hypertension; E11.9 Type 2 diabetes mellitus without complications; F41.8 Other specified anxiety disorders; Z20.822 Contact with and (suspected) exposure to COVID-19
CPT/HCPCS: 96365; 93005; 87088; 85025; 87086; 80048; 36415; 80076; 84484; 83690; 0240U; 70450; 74177; 96375; 99284; Q9967; J2765; J1200; J0696; J7030; 81003; 81015

== ENCOUNTER 2021-02-13 09:36 | Observation (INO) | payer OTHER ==
[2021-02-12 10:20] LABS: Absolute Lymphocytes (CBC) 1.3 K/uL (0.7-4.9); Basophils % 1.4 % (0-1.3); Hematocrit 41.7 % (36.0-45.0); Lymphocytes % 21.6 % (15.3-44.8); MPV 8.9 fL (7.6-11.3); RBC Red Blood Cell Count 4.76 M/uL (3.86-4.86)
[2021-02-12 10:23] LABS: Protime INR 0.93
[2021-02-12 10:23] LABS: Urine Appearance CLEAR (Clear); Urine Bilirubin NEGATIVE (Negative); Urine Blood NEGATIVE (Negative); Urine Color YELLOW (Yellow); Urine Glucose TRACE (Negative); Urine Protein NEGATIVE (Negative); Urine Specific Gravity 1.025 (1.005-1.030); Urine Urobilinogen 0.2 mg/dL (0.2-1.0); Urine pH 5.5 (5.0-7.0)
[2021-02-12 10:34] LABS: Albumin 3.7 g/dL (3.4-5.0); Bilirubin Total 0.3 mg/dL (0.2-1.0); Potassium 3.8 mmol/L (3.5-5.1); Protein, Total 7.6 g/dL (6.4-8.2)
[2021-02-12 10:40] LABS: Urine Microscopic Reflex NO UMIC
--- NOTE | 2021-02-12 12:18 | RAD REPORT ---
EXAM DESCRIPTION: RAD - Chest Pa And Lat (2 Views) - 02/12/2021 10:11 am CLINICAL HISTORY: Pre Op pending knee replacement COMPARISON: August 2018 TECHNIQUE: Frontal and lateral views of the chest were obtained. FINDINGS: The lungs are clear of acute infiltrate or mass. Interstitial markings are prominent but s table. Moderate-sized hiatal hernia is present. Heart size is normal and central vasculature is wit hin normal limits. No pleural effusion or pneumothorax seen. No acute bony finding noted. No aorti c abnormality. IMPRESSION: No acute cardiopulmonary process. Above detailed findings are stable from comparison.
[~2021-02-13 09:36] MED LIST: TRANEXAMIC ACID 1,000 MG in NA CHLORIDE 0.9% 50 ML IV ONE
[2021-02-13] MEDS ORDERED: NA CHLORIDE 0.9% 1,000 ML ONE ×2 (10:09→11:44)
[2021-02-13] MEDS ORDERED: GABAPENTIN 100 MG CAP ONE (10:15)
[2021-02-13] MEDS ORDERED: CELECOXIB 100 MG CAPSULE ONE (10:15)
[2021-02-13] MEDS ORDERED: ACETAMINOPHEN 500 MG TAB ONE (10:16)
[2021-02-13] MEDS ORDERED: Oxycodone HCl/Acetaminophen 1 TAB TAB ONE (10:16)
[2021-02-13] MEDS: CEFAZOLIN 2 GM IN 0.9% NACL 2 GM/100 ML BAG ONE ×2 (10:20→10:26)
[2021-02-13] MEDS ORDERED: HYDROMORPHONE HCL 1 MG/ML INJ ONE (10:53)
[2021-02-13] MEDS ORDERED: BUPIVACAINE 0.75% (PF) 2 ML SP ONE (10:59)
[2021-02-13] MEDS ORDERED: propofoL 200 MG/20 ML VIAL IV ONE (10:59)
[2021-02-13] MEDS ORDERED: LIDOCAINE 2% MPF 5 ML VIAL ONE (10:59)
[2021-02-13] MEDS ORDERED: LIDOCAINE 1% MPF 30 ML VIAL ONE (10:59)
[2021-02-13] MEDS ORDERED: FENTANYL CITR 100 MCG/2 ML ONE ×2 (10:59→11:18)
[2021-02-13] MEDS ORDERED: MIDAZOLAM HCL 2 MG/2 ML INJ ONE (10:59)
[2021-02-13] MEDS ORDERED: dexAMETHasone 10 MG/ML VIAL ONE (10:59)
[2021-02-13] MEDS ORDERED: BUPIVACAINE 0.25% PF 10 ML VIAL ONE (10:59)
[2021-02-13] MEDS ORDERED: KETAMINE HCL 500 MG/5 ML VIAL ONE (11:00)
[2021-02-13] MEDS ORDERED: ONDANSETRON 4 MG/2 ML VIAL ONE ×2 (11:00→15:39)
[2021-02-13] MEDS ORDERED: KETOROLAC 30 MG/ML INJ ONE (11:00)
[2021-02-13] MEDS ORDERED: LABETALOL 20 MG/4ML SYRINGE IV ONE (11:36)
[2021-02-13] MEDS ORDERED: NALOXONE 0.4 MG/ML VIAL IV PRN (12:57)
[2021-02-13] MEDS ORDERED: MORPHINE/NS PCA 50 MG/50 ML PCA.SYRING IV PRN (12:57)
[2021-02-13] MEDS ORDERED: ONDANSETRON 4 MG/2 ML VIAL IV PRN (12:57)
[2021-02-13] MEDS ORDERED: DOCUSATE NA 100 MG CAP PO PRN (12:57)
--- NOTE | 2021-02-13 12:57 | P.BOP ---
Preoperative diagnosis: left knee severe djd Postoperative diagnosis: same Primary procedure: left total knee arthoplasty Estimated blood loss: 100cc Complications: None Transferred to: Recovery Room Condition: Good
--- NOTE | 2021-02-13 13:48 | OP ---
Date of Procedure: 02/13/2021 Surgeon: Abdelrahman Vazquez MD Preoperative Diagnosis: Severe left knee arthritis with valgus deformity. Postoperative Diagnosis: Severe left knee arthritis with valgus deformity. Procedure: Left total knee arthroplasty using the [employer] Vanguard system. Estimated Blood Loss: Less than 100 mL. Complications: There were no complications. Specimens: No pathology specimens sent. Indications For Operation: Ms. Jimenez is a 75-year-old female, who unfortunately has had severe damon n in her left knee, which was unresolved with conservative care. She has obvious valgus deformity an d severe arthritis on x-ray. Risks, benefits, and alternatives for total knee arthroplasty have been discussed with her. She states she understands things as presented and wishes to proceed. Description Of Procedure: The patient was taken to the operating room and placed in supine position. General anesthesia was obtained by staff. Following this, she was noted to have a pseudovarus inst ability with a valgus knee, but she does have full range of motion of her knee. Left lower extremity was then prepped and draped in usual sterile fashion for the procedure and a standard incision was t hen taken down carefully through skin only and meticulous hemostasis being maintained using Bovie jose luis ctrocautery. This leads down to the extensor mechanism. This was then marked out and a standard med ial parapatellar arthrotomy was then performed. The medial and lateral menisci as well as ACL were r esected and the patella was everted. Following this, the attention was then turned to the femur. Th e standard intramedullary alignment guide was then placed. She was found to have quite a bit of loss of the lateral femoral condyle; however, it was cut more in a standard fashion, perhaps slightly mor e femur than normal and it was then sized to a size 70. The remainder of the cuts were then performe d. It should be noted that the cortical rim is easily displaced using the saw demonstrating more or less severe osteoporosis, this was noted. Following this, attention was then turned back to the tibi a. It was then cut at the base of the defect. The trial femur was then placed and with a size 10 po ly was found to have good alignment and actually be now stable with full flexion and extension. Atte ntion was then turned back to the femur and the box was cut. After this, the tibia was punched and t he bone plug was inserted. The tibia was then applied in standard fashion and attention was then tur dmitri to the femur. The femur was being placed. It did bride tiny bit high medially, but this is susp ected to be from this small amount of cortical disruption with some bone there. It was otherwise chanel jacqueline in standard fashion; however, very light tapping is used. After this, the trial polyethylene was then placed in the previously cut patella. The patella button was then cemented in place. The knee was then kept in extension. The patella was found to glide very well with simple finger pressure. It did appear to be appropriately aligned with full flexion, extension, and balance. Visualization o f the medial side at this point demonstrated that there was more cement mantle there than I would hav e normally like and it appeared that as the cement was drying with her knee extension, she may have b een a little bit of valgus, so this given her osteoporosis, may have brought this down slightly both at the box as well as the medial femoral condyle. Judgment was used at this time to assess whether o r not it had good soft tissue ability, which it did and also did have a good cement mantle, although slightly larger than I would like. It does comes to full flexion, extension, and appeared to be alig dmitri in the sagittal plane. Decision was made not to try to remove the femur for slightly smaller maida ent mantle and the final poly was then placed. All unsupported cement had previously been removed an d it was again irrigated. The knee was brought through a full range of motion. The patella seats wi th simple very light thumb pressure. The medial parapatellar arthrotomy was then closed in a waterti ght fashion using heavy Ethibond sutures. It was again irrigated and skin was closed using Vicryl rust miri followed by herrera. The patient's knee was then brought through full range of motion and appe ars to be well balanced in flexion and extension with no change in sagittal alignment. The patient w as then placed in a well-padded sterile dressing, awakened, and taken to the recovery room in good condition. No complications. SE/MODL Voice ID: [id number] Report ID: [id number]
[2021-02-13] MEDS ORDERED: NA CHLORIDE 0.9% 500 ML ONE (13:53)
[2021-02-13 14:04] VITALS: O2SAT 99
[2021-02-13] MEDS: HYDROCODONE/APAP 7.5/325 MG TAB PO PRN ×2 (14:50→20:43)
[2021-02-13] MEDS ORDERED: HYDROCODONE/APAP 7.5/325 MG TAB ONE (15:15)
[2021-02-13 16:14] VITALS: BMI 25.1
[2021-02-13] MEDS: CEFAZOLIN/NS 1gm 1 GM/50 ML BAG IVPB SCH (17:46)
[2021-02-13] MEDS ORDERED: MORPHINE 2 MG/ML SYR IV PRN ×2 (23:41→23:45)
[2021-02-13] MEDS ORDERED: GLUCAGON 1 MG/VIAL IM PRN (23:45)
[2021-02-13] MEDS ORDERED: D50W 25 GM/50 ML SYRINGE IV PRN (23:45)
--- NOTE | 2021-02-14 00:06 | P.CNS ---
Date of Consult: 02/14/21 Reason for Consult: Medical management Requesting Physician: Abdelrahman Vazquez Primary Care Provider: Dr. Elliott Chief Complaint: Left knee pain History of Present Illness: 75-year-old female with history of diabetes type 2, hypertension, GERD, hyperlipidemia severe left knee arthritis was admitted to the hospital for left total knee arthroplasty by her orthopedic physician. Patient had a left total knee surgery today, hospitalist team was consulted for medical management. Allergies No Known Allergies Allergy (Verified 02/13/21 09:56) Home Medications: Atorvastatin Calcium [Lipitor*] 40 mg PO DAILY 01/10/13 Paroxetine HCl [Paxil] 20 mg PO DAILY 01/10/13 Lisinopril/Hydrochlorothiazide [Lisinopril-Hctz 20-25 mg Tab] 0.5 tab PO DAILY 6AM 08/08/16 Metformin HCl 500 mg PO BID 08/08/16 Tramadol HCl 50 mg PO Q6HP PRN 08/08/16 Gabapentin [Neurontin] 300 mg PO BID 08/19/18 Aspirin [Aspirin EC 81 MG] 81 mg PO DAILY 02/12/21 Cholecalciferol (Vitamin D3) [Vitamin D3] 25 mcg PO DAILY 02/12/21 Cyanocobalamin [Vitamin B-12] 1,000 mcg PO DAILY 02/12/21 Ferrous Sulfate [Iron] 325 mg PO DAILY 02/12/21 Omeprazole [Prilosec] 40 mg PO DAILY 02/12/21 glipiZIDE [Glipizide] 2.5 mg PO BID 02/12/21 - Past Medical/Surgical History Diabetic: Yes -: Hypertension -: Hyperlipidemia -: Gerd -: TIA -: Diabetes mellitus type 2 -: hiatal hernia -: hernia x 2 -: appendectomy -: hysterectomy -: bladder suspension - Family History Mother Medical History: Hypertension, Cancer Notes: liver cancer Father Medical History: Other (see notes) Notes: muscles deteriorated Brother Medical History: Stroke - Social History Smoking Status: Former smoker, Never smoker Alcohol use: No CD- Drugs: No Caffeine use: No Place of Residence: Home Review of Systems 10-point ROS is otherwise unremarkable Musculoskeletal: Other (Left knee pain) Physical Examination Temp Pulse Resp BP Pulse Ox 97.9 F 88 19 141/76 H 93 02/13/21 20:00 02/13/21 20:00 02/13/21 20:00 02/13/21 20:00 02/13/21 20:00 General: Alert, Oriented x2, Confused HEENT: Atraumatic, Normocephalic Neck: Supple Respiratory: Clear to auscultation bilaterally, Normal air movement Capillary refill: <2 Seconds Gastrointestinal: Normal bowel sounds Musculoskeletal: Other (Incision to left knee herrera intact without redness swelling or drainage around) Neurological: Normal speech, Normal strength at 5/5 x4 extr, Normal tone Conclusions/Impression: Assessment: Status post left total knee replacement Diabetes type 2 Hypertension Hyperlipidemia GERD Plan: Status post left total knee replacement: Patient with confusion tonight was out of bed walking, took her dressing off and reportedly had an unwitnessed fall, patient reports fall to staff but again this was unwitnessed. Patient complaining of head pain. CT head C-spine without contrast ordered, strict fall precautions ordered including bed check. Surgical incision to left knee still well approximated without redness swelling drainage or bleeding. Additional management by orthopedics in regards to left knee replacement. Diabetes type 2: A [facility] Accu-Chek, sliding scale insulin therapy. Home medications continued Hypertension: Home medications continued Hyperlipidemia: Home medications continued GERD: Home medications continued DVT PPX: Per Ortho Code status: Full Critical Care: No Time Spent Managing Pts care (In Minutes): 35
[2021-02-14] MEDS: CEFAZOLIN/NS 1gm 1 GM/50 ML BAG IVPB SCH ×2 (01:33→08:43)
[2021-02-14] MEDS: HYDROCODONE/APAP 7.5/325 MG TAB PO PRN ×3 (01:39→12:42)
[2021-02-14] MEDS ORDERED: lisinopriL 10 MG TAB PO SCH (06:00)
[2021-02-14] MEDS ORDERED: HOME MED 1 EA UNK (Lisinopril/Hydrochlorothiazide [Lisinopril-Hctz 20-25 Mg Tab] Tablet) PO SCH (06:00)
[2021-02-14] MEDS ORDERED: hydroCHLOROthiazide 12.5 MG CAP PO SCH (06:00)
--- NOTE | 2021-02-14 06:07 | P.PN ---
Subjective Date of Service: 02/14/21 Primary Care Provider: Dr. Elliott Chief Complaint: Left knee pain Subjective: Improving Physical Examination - Vital Signs Temperature: 97.2 F Blood Pressure: 140/54 Pulse: 52 Respirations: 18 Pulse Ox (%): 97 Assessment & Plan Discharge Plan: Home Plan to discharge in: 48 Hours Physician Review Additional Text: COVID: Negative CXR: COMPARISON: August 2018 TECHNIQUE: Frontal and lateral views of the chest were obtained. FINDINGS: The lungs are clear of acute infiltrate or mass. Interstitial markings are prominent but stable. Moderate-sized hiatal hernia is present. Heart size is normal and central vasculature is within normal limits. No pleural effusion or pneumothorax seen. No acute bony finding noted. No aortic abnormality. IMPRESSION: No acute cardiopulmonary process. Above detailed findings are stable from comparison. CT head/neck: Report pending but unremarkable as reported by overnight pl sql programmer Surgery: Date of Procedure: 02/13/2021 Surgeon: Abdelrahman Vazquez MD Preoperative Diagnosis: Severe left knee arthritis with valgus deformity. Postoperative Diagnosis: Severe left knee arthritis with valgus deformity. Procedure: Left total knee arthroplasty using the [employer] Vanguard system. Estimated Blood Loss: Less than 100 mL. Complications: There were no complications. Specimens: No pathology specimens sent. Physical exam: General: Patient alert. Better oriented today. HEENT: Atraumatic, Normocephalic Neck: Supple Respiratory: Clear to auscultation bilaterally, Normal air movement Capillary refill: <2 Seconds Gastrointestinal: Normal bowel sounds Musculoskeletal: Other (Incision to left knee herrera intact without redness swelling or drainage around) Neurological: Normal speech, Normal strength at 5/5 x4 extr, Normal tone Impression: Chronic left knee pain status post left total knee arthroplasty Acute confusion likely related to pain medication Diabetes type 2 Hypertension Hyperlipidemia GERD Postop anemia with history of iron deficiency Plan: Chronic left knee pain status post left total knee arthroplasty: Patient was confused last night. This is likely related to pain medication. Morphine dis continued. CT scan performed overnight unremarkable. Await final evaluation. Patient status post total left knee arthroplasty. Continue with oral medication for pain. Physical therapy to assess ambulation. Physical therapy to make recommendations on whether patient will go home with home health and physical therapy or skilled placement. Will discuss with orthopedics concerning plan of care. Acute confusion likely related to pain medication: Morphine discontinued. We will continue with oral medication as needed for pain. Diabetes type 2: Continue Accu-Cheks and sliding scale. Patient takes glipizide and metformin at home Hypertension: Restart lisinopril to chlorothiazide. Hyperlipidemia: Restart Lipitor GERD: Continue with medication. Patient takes Prilosec Depression: Continue with Paxil Chronic pain with diabetic neuropathy: Continue with gabapentin. Patient started on tramadol. Postop anemia with history of iron deficiency: Continue with iron supplementation DVT PPX: Lovenox adjusted. Will discuss with orthopedics as the patient may be switched over to Xarelto for post arthroplasty prophylaxis Code status: Full code Advanced care planning: Physical therapy to evaluate. Consider home health and physical therapy at discharge versus skilled placement. Time Spent Managing Pts Care (In Minutes): 55
[2021-02-14 06:12] LABS: Hematocrit 32.7 % (36.0-45.0)
[2021-02-14] MEDS ORDERED: PANTOPRAZOLE 40MG TABLET PO SCH (06:30)
[2021-02-14] MEDS: ENOXAPARIN 30 MG/0.3 ML SQ SCH ×2 (07:21→08:37)
[2021-02-14] MEDS: INSULIN -REGULAR HUMAN 50 UNIT/0.5 ML ML SQ SCH ×3 (07:30→16:30)
[2021-02-14] MEDS: METFORMIN HCL 500 MG TAB PO SCH ×2 (08:37→17:07)
[2021-02-14] MEDS ORDERED: ATORVASTATIN 40 MG TAB PO SCH (09:00)
[2021-02-14] MEDS ORDERED: FERROUS SULFATE 325 MG TAB PO SCH (09:00)
[2021-02-14] MEDS ORDERED: GABAPENTIN 300 MG CAP PO SCH (09:00)
[2021-02-14] MEDS ORDERED: PARoxetine HCL 10 MG TAB PO SCH (09:00)
[2021-02-14] MEDS ORDERED: CYANOCOBALAMIN 1,000 MCG TAB PO SCH (09:00)
--- NOTE | 2021-02-14 11:30 | RAD REPORT ---
EXAM DESCRIPTION: CT - Head C Spine Mpr Wo Con - 02/14/2021 1:14 am COMPARISON: CT head January 19, 2021 CLINICAL HISTORY: [facility] MAIN Fall, C/O headache. TECHNIQUE: Axial images were obtained from skull base to vertex without intravenous contrast. Imag es viewed on bone and brain windows. Multiplanar reformats were performed. Automated exposure contr ol was utilized on this examination as a dose lowering technique. FINDINGS: Brain parenchyma, ventricles, dura, meninges, and extra-axial spaces: Mild generalized cer ebral and cerebellar volume loss is present. Mild hypodensities in the subcortical white matter of chang th hemispheres are nonspecific but likely relate to chronic small vessel disease. No acute intracrani al hemorrhage or abnormal extra-axial fluid collections. Vascular structures: Intracranial atherosclerosis is present. Calvarium, mastoid air cells, paranasal sinuses and orbits: The calvarium is normal. Small left masto id effusion. Chronic left maxillary sinusitis. Hyperdense elements may represent inspissated mucus or fungal components. Orbital structures are unremarkable. EXAM DESCRIPTION: CT Cervical Spine COMPARISON: None. CLINICAL HISTORY: [facility] MAIN Fall, C/O headache. TECHNIQUE: Axial CT images were obtained through the entire cervical spine without contrast. Sagit alee and coronal reconstructions are provided. Automated exposure control was utilized on this examina tion as a dose lowering technique. FINDINGS: Vertebrae: There is 2 mm anterolisthesis C3 on C4 and C4 on C5. No acute fracture, dislo cation or destructive osseous process is present. Spinal canal, foramina, and facet joints: Greatest spinal canal stenosis is mild at C5-C6 due to disc osteophyte complex. Greatest foraminal st enoses are severe at right C4, bilateral C6 due to uncovertebral and facet hypertrophy. Paraspinous soft-tissues: Normal. Thyroid: Normal. Other Findings: Carotid atherosclerosis. IMPRESSION: HEAD IMPRESSION: 1. No acute intracranial abnormality. 2. Mild senescent changes. 3. Chronic left maxillary sinusitis. C-SPINE IMPRESSION: No acute findings of the cervical spine. Electronically signed by: Bob Tolbert MD 02/14/2021 1:05 AM CDT Due to temporary technical issues with the PACS/Fluency reporting system, reports are being signed by the in house radiologist without review as a courtesy to ensure prompt reporting. The interpreting r adiologist is fully responsible for the content of the report.
[2021-02-14 17:30] VITALS: BP 131/69; TEMP 97.9
[2021-02-15] MEDS ORDERED: PANTOPRAZOLE 40MG TABLET PO SCH (07:30)
[2021-02-15] MEDS ORDERED: ENOXAPARIN 30 MG/0.3 ML SQ SCH (09:00)
== END 2021-02-14 18:16 | disposition home health service (06) ==
LOC: OR 09:36 → 2ND 15:03
PROVIDERS: ADMIT Orthopaedic Surgery; ATTEND Orthopaedic Surgery
PROC: 0SRD069 Replacement of Left Knee Joint with Oxidized Zirconium on Polyethylene Synthetic Substitute, Cemented, Open Approach (ICD-10-PCS; principal; 2021-02-13 11:30)
DX: M17.12 Unilateral primary osteoarthritis, left knee (principal); M21.062 Valgus deformity, not elsewhere classified, left knee; G89.29 Other chronic pain; E11.40 Type 2 diabetes mellitus with diabetic neuropathy, unspecified; I10 Essential (primary) hypertension; E78.5 Hyperlipidemia, unspecified; K21.9 Gastro-esophageal reflux disease without esophagitis; D64.9 Anemia, unspecified; R41.0 Disorientation, unspecified; R51.9 Headache, unspecified; W19.XXXA Unspecified fall, initial encounter; Y92.239 Unspecified place in hospital as the place of occurrence of the external cause; F32.9 Major depressive disorder, single episode, unspecified; Z20.822 Contact with and (suspected) exposure to COVID-19; Z79.82 Long term (current) use of aspirin; Z86.73 Personal history of transient ischemic attack (TIA), and cerebral infarction without residual deficits; Z90.710 Acquired absence of both cervix and uterus; Z82.49 Family history of ischemic heart disease and other diseases of the circulatory system; Z80.0 Family history of malignant neoplasm of digestive organs; Z82.3 Family history of stroke
CPT/HCPCS: 27447; 85025; 36415 ×2; 86900; 86850; 85610; 86901; 82947 ×7; 88304; 88311; 85730; 85018; 85014; 81003; 80053; 70450; 72125; 71046; 97116 ×2; 97139; 97161; 94010 ×2; U0003; J2704; J1650; J2250; J3010 ×2; J1100; J2270; J1170; J0690 ×2; G0378 ×3; J7040; J7030 ×2; J2405 ×2; G0379; 88305

== ENCOUNTER 2021-05-27 09:43 | Day surgery (SDC) | payer OTHER ==
[2021-05-27] MEDS ORDERED: NA CHLORIDE 0.9% 1,000 ML ONE (10:12)
[2021-05-27] MEDS ORDERED: CEFAZOLIN/NS 1gm 1 GM/50 ML BAG ONE (10:13)
[2021-05-27] MEDS ORDERED: ONDANSETRON 4 MG/2 ML VIAL ONE ×3 (10:31→15:44)
[2021-05-27] MEDS ORDERED: ACETAMINOPHEN 500 MG TAB ONE (10:31)
[2021-05-27] MEDS ORDERED: dexAMETHasone 10 MG/ML VIAL ONE ×3 (10:59→14:24)
[2021-05-27] MEDS ORDERED: NA CHLORIDE 0.9% 500 ML ONE (11:00)
[2021-05-27] MEDS ORDERED: LIDOCAINE 1% W/EPI 1:100,000 MDV 20 ML VIAL ONE (11:00)
[2021-05-27] MEDS ORDERED: OXYMETAZOLINE HCL 0.05% 15ML NAS ONE (11:16)
[2021-05-27] MEDS ORDERED: propofoL 200 MG/20 ML VIAL IV ONE (11:54)
[2021-05-27] MEDS ORDERED: MIDAZOLAM HCL 2 MG/2 ML INJ ONE (11:54)
[2021-05-27] MEDS ORDERED: ROCURONIUM 50 MG/5 ML VIAL IV ONE (11:54)
[2021-05-27] MEDS ORDERED: LIDOCAINE 2% MPF 5 ML VIAL ONE (11:54)
[2021-05-27] MEDS ORDERED: FENTANYL CITR 250 MCG/5 ML ONE (11:54)
[2021-05-27] MEDS ORDERED: GLYCOPYRROLATE 0.2 MG/ML SYR ONE (11:58)
[2021-05-27] MEDS ORDERED: BALANCED SALT IRRIG PLAIN 500 ML IRR ONE (13:52)
[2021-05-27] MEDS ORDERED: EPHEDRINE SULF 50 MG/ML VIAL ONE (13:52)
[2021-05-27] MEDS ORDERED: BSS OPTHALMIC SOL 15 ML OPTH ONE (13:54)
[2021-05-27] MEDS: LABETALOL 20 MG/4ML SYRINGE IV ONE ×2 (14:38→14:44)
[2021-05-27] MEDS: HYDRALAZINE HCL 20 MG/ML VIAL ONE ×2 (15:03→15:17)
[2021-05-27] MEDS: HYDROMORPHONE HCL 1 MG/ML INJ ONE ×6 (15:43→17:30)
[2021-05-27] MEDS: NA CHLORIDE 0.9% 1,000 ML ONE ×2 (15:57→17:00)
[2021-05-27 18:38] VITALS: O2SAT 96
[2021-05-27 18:42] VITALS: BP 153/84; TEMP 97.3
== END 2021-05-27 17:45 | disposition short-term general hospital (02) ==
LOC: OR 09:43
PROVIDERS: ATTEND Otolaryngology Facial Plastic Surgery
PROC: 08N1XZZ Release Left Eye, External Approach (ICD-10-PCS; 2021-05-27)
PROC: 09TL8ZZ Resection of Nasal Turbinate, Via Natural or Artificial Opening Endoscopic (ICD-10-PCS; principal; 2021-05-27 11:30)
DX: J32.0 Chronic maxillary sinusitis (principal); J34.89 Other specified disorders of nose and nasal sinuses; J34.3 Hypertrophy of nasal turbinates; Z20.822 Contact with and (suspected) exposure to COVID-19
CPT/HCPCS: 31240; 67715; 82947 ×2; 88331; 88305 ×2; U0003; J0360; J2704; J2250; J3010; J1100 ×3; J1170 ×3; J0690; J7050; J7030 ×2; J2405 ×3; 88311

== ENCOUNTER 2024-10-11 05:29 | Day surgery (SDC) | payer OTHER ==
[2024-10-06 10:11] LABS: Absolute Basophils 0.2 K/uL (0-0.5); Absolute Eosinophils 0.6 K/uL (0-0.5); Absolute Lymphocytes (CBC) 1.5 K/uL (0.7-4.9); Absolute Monocytes 0.6 K/uL (0.1-1.3); Absolute Neutrophil 5.8 K/uL (1.8-8.0); Basophils % 1.7 % (0-1.3); Eosinophils % 7.2 % (0-4.4); Hematocrit 44.1 % (36.0-45.0); Hemoglobin 14.4 g/dL (12.0-15.0); Lymphocytes % 17.1 % (15.3-44.8); MCH 30.6 pg (27.0-35.0); MCHC 32.7 g/dL (32.0-36.0); MCV 93.6 fL (80-100); MPV 9.1 fL (7.6-11.3); Monocytes % 7.4 % (3.3-12.3); Neutrophils % 66.6 % (41.7-73.7); Nucleated Red Blood Cells % 0.2 % (0-0); Platelets 227 thou/uL (152-406); RBC Red Blood Cell Count 4.71 M/uL (3.86-4.86); Red Cell Distribution Width 16.3 % (12.1-15.2)
[2024-10-06 10:20] LABS: PT Prothrombin Time 11.3 SECONDS (10-13.0); PTT, Activated Partial Thromb 29.6 SECONDS (27.2-37.4); Protime INR 0.99
[2024-10-06 10:23] LABS: Specific Gravity 1.026 (1.005-1.030); Urine Bilirubin NEGATIVE (Negative); Urine Blood Negative (Negative); Urine Clarity Clear (Clear); Urine Color Yellow (Yellow); Urine Glucose TRACE (Negative); Urine Ketones NEGATIVE (Negative); Urine Microscopic Reflex YN NO UMIC; Urine Nitrite NEGATIVE (Negative); Urine Protein NEGATIVE (Negative); Urine Urobilinogen 1+ (Normal); Urine pH 5.5 (5.0-7.0)
[2024-10-06 10:27] LABS: Albumin 3.5 g/dL (3.4-5.0); Albumin/Globulin Ratio 0.7 (1.1-1.8); Anion Gap 13.4 mEq/L (5.0-15.0); Bilirubin Total 0.7 mg/dL (0.2-1.0); Globulin 4.7 g/dL (2.3-3.5); Potassium 4.4 mEq/L (3.5-5.1); Protein, Total 8.2 g/dL (6.4-8.2)
--- NOTE | 2024-10-06 11:32 | RAD REPORT ---
EXAMINATION: TWO VIEW CHEST XR CLINICAL INDICATION: Female, 78 years old. [facility] MAIN pre op for day surgery. Hypertension TECHNIQUE: 2 view radiographs of the chest were performed. COMPARISON: 02/12/2021 FINDINGS: The lungs are well inflated and clear. No pneumothorax or sizable effusion. The heart is normal in si ze. Mediastinal contours are unremarkable. IMPRESSION: No acute or significant abnormalities.
[2024-10-11] MEDS: MAGNESIUM SULFATE 1 gm IVPB 1 GM/100 ML BAG IV ONE (05:56)
[2024-10-11] MEDS: DEXMEDETOMIDINE HCL 200 MCG/2 ML VIAL ONE (05:56)
[2024-10-11] MEDS: NA CHLORIDE 0.9% 1,000 ML ONE (05:58)
[2024-10-11] MEDS ORDERED: LIDOCAINE 2% MPF 5 ML VIAL ONE (06:01)
[2024-10-11] MEDS ORDERED: KETAMINE HCL IN 0.9 % NACL 50 MG/5 ML SYRINGE IV ONE (06:01)
[2024-10-11] MEDS ORDERED: FENTANYL CITR 100 MCG/2 ML ONE (06:01)
[2024-10-11] MEDS ORDERED: MIDAZOLAM HCL 2 MG/2 ML INJ ONE (06:01)
[2024-10-11] MEDS ORDERED: ONDANSETRON 4 MG/2 ML VIAL ONE (06:01)
[2024-10-11] MEDS ORDERED: propofoL 200 MG/20 ML VIAL IV ONE ×3 (06:01→09:22)
[2024-10-11] MEDS: Oxycodone HCl/Acetaminophen 5/325 MG TAB ONE (06:17)
[2024-10-11] MEDS: ACETAMINOPHEN 500 MG TAB ONE (06:17)
[2024-10-11] MEDS: CELECOXIB 100 MG CAPSULE ONE (06:17)
[2024-10-11] MEDS: GABAPENTIN 100 MG CAP ONE (06:17)
[2024-10-11] MEDS: BUPIVACAINE 0.25% PF 30 ML VIAL ONE (06:25)
[2024-10-11] MEDS: LIDOCAINE 1% MPF 5 ML VIAL ONE (06:25)
[2024-10-11] MEDS: dexAMETHasone 4 MG/ML VIAL ONE (06:26)
[2024-10-11] MEDS: EPINEPHRINE 1 MG/ML VIAL ONE (06:26)
[2024-10-11] MEDS ORDERED: SUCCINYLCHOLINE 20 MG/ML (10 ML) IV ONE (06:36)
[2024-10-11] MEDS: CEFAZOLIN SODIUM 2 GM/VIAL ONE (07:30)
[2024-10-11] MEDS: TRANEXAMIC ACID 1,000 MG/10 ML VIAL IV ONE (07:50)
[2024-10-11] MEDS: propofoL 1,000 MG/100 ML VIAL IV ONE (07:50)
[2024-10-11] MEDS ORDERED: HYDRALAZINE HCL 20 MG/ML VIAL ONE (08:07)
[2024-10-11] MEDS: Ringers Lactate 1,000 ML IV ONE (08:15)
[2024-10-11] MEDS ORDERED: DOCUSATE NA 100 MG CAP PO PRN (09:49)
--- NOTE | 2024-10-11 09:54 | P.BOP ---
Preoperative diagnosis: right knee arthritis Postoperative diagnosis: same Estimated blood loss: 100ccs Anesthesia: General Complications: None Transferred to: Recovery Room Condition: Good
[2024-10-11] MEDS: HYDROMORPHONE HCL 1 MG/ML INJ ONE ×2 (10:29→10:49)
[2024-10-11] MEDS: INSULIN REGULAR (HUMAN) 100 UNIT/ML ONE (10:44)
[2024-10-11 10:50] VITALS: O2SAT 95
[2024-10-11 11:37] VITALS: BMI 23.6
--- NOTE | 2024-10-11 11:50 | OP ---
Date of Procedure: 10/11/2024 Surgeon: Abdelrahman Vazquez MD Preoperative Diagnosis: Severe right knee arthritis. Postoperative Diagnoses: Severe right knee arthritis. Procedure: Right total knee arthroplasty using the [employer] system. Estimated Blood Loss: 100 cc. Complications: There were no complications. Indications For Operation: Ms. Jimenez is a patient in trouble with knee pain for quite some time. This persisted despite conservative measures including available medications and other conservative m easures. The patient is highly interested in total knee arthroplasty, and risks, benefits, and alter natives of this procedure had been discussed with her. She states she understands things as presente d, and wishes to proceed. Description Of Procedure: She had a block in the holding area and then she was brought to the operat ing suite where general anesthesia was obtained by the Anesthesia staff. Following this, a well-padd ed tourniquet was placed on superior right thigh. Right lower extremity was then prepped and draped in the usual fashion for the procedure. After this, the knee was then elevated, gently exsanguinated , and bent. Tourniquet was raised. A standard anterior incision was made carefully through skin an d soft tissues. Meticulous hemostasis being maintained using Bovie electrocautery. This leads down to the appropriate level and the extensor mechanism was then marked for a later repair. A standard m edial parapatellar arthrotomy was then performed with liberation of approximately 30 cc of rather nor mal-appearing synovial fluid. After this, the anterior cruciate ligament, the medial meniscus and la teral meniscus are debrided and intramedullary alignment guide is used and distal cutting block is fi xed. After this, it was then sized to a size 10. The remainder of the femoral cuts were then made a nd attention was then turned to the tibia. The PCL was removed and the tibia was prepped. Following this, it was cut in standard fashion using a tibial cutting block and appropriately sized. The tria l polyethylene was then placed and knee was brought to full extension. It comes to full extension, f ull flexion, and appears to be balanced in both flexion and extension. The patella was then calipere d and cut. The trial patella was then placed. The knee was brought through the range of motion. Th e patella was held in place with simple thumb pressure. These were selected as the final sizes and p arameters and the lag holes in the femur are completed as well as the tibia being punched and the bon e surfaces were prepped for cementation. After this, all the components were then cemented with melissa erika of any unsupported cement with the exception of polyethylene which is trial polyethylene is allow ed to harden. The trial polyethylene was then exchanged for the final polyethylene and well seated, after this was brought through range of motion, again it appears to be balanced. The patella was hel d with simple thumb pressure. The wound was copiously irrigated and extensor mechanism was closed in a watertight fashion using heavy Ethibond sutures, this was followed by closure of skin with Vicryl followed by herrera. The patient was then placed in a well-padded sterile dressing, awakened, and ta gabriel to recovery room in good condition. There are no complications. /JAMA Voice ID: [id number] Report ID: [id number]
--- NOTE | 2024-10-11 12:39 | EKG ---
Test Date: 2024-10-06 Test Time: 09:53:40 [employer] Grade Teacher: JOSE MEASUREMENT RESULTS: Intervals: Rate: 68 AZ: 184 QRSD: 72 QT: 382 QTc: 406 Blackwell: P: 60 AZ: 184 QRS: 49 T: 31 INTERPRETIVE STATEMENTS: Normal sinus rhythm Normal ECG Compared to ECG 01/19/2021 23:25:18 No significant changes Electronically Signed On 10-11-24 12:28:25 CDT by Moisés Gaxiola
[2024-10-11] MEDS: CEFAZOLIN 1 GM in NA CHLORIDE 0.9% 50 ML IVPB SCH (15:58)
[2024-10-11] MEDS: HYDROCODONE/APAP 7.5/325 MG TAB PO PRN (17:21)
--- NOTE | 2024-10-12 04:43 | P.CNS ---
Date of Consult: 10/12/24 Reason for Consult: Medical management Chief Complaint: Right total knee arthroplasty History of Present Illness: Patient is a 78-year-old female came to the hospital with right total knee arthroplasty. Patient also with history of diabetes. Allergies No Known Allergies Allergy (Verified 10/11/24 05:59) Home Medications: Atorvastatin Calcium [Lipitor*] 40 mg PO DAILY 01/10/13 Metformin HCl 500 mg PO SEECOM 08/08/16 Gabapentin [Neurontin*] 300 mg PO BID 08/19/18 Cholecalciferol (Vitamin D3) [Vitamin D3] 25 mcg PO DAILY 02/12/21 Cyanocobalamin [Vitamin B-12*] 1,000 mcg PO DAILY 02/12/21 Omeprazole [Prilosec] 40 mg PO DAILY 02/12/21 glipiZIDE [Glipizide] 2.5 mg PO BID 02/12/21 Lisinopril/Hydrochlorothiazide [Lisinopril-Hctz 10-12.5 mg Tab] 1 tab PO DAILY 05/23/21 B6/FA/B12/Co Q10/Herb No.225 [Healthy Heart Complex Tablet] 1 tab PO DAILY 10/06/24 Iron,Carb/Vit C/Vit B12/Folic [Iron 100 Plus Tablet] 65 mg PO DAILY 10/06/24 - Past Medical/Surgical History Diabetic: Yes -: htn -: hld -: dm -: heartburn -: Diabetes mellitus type 2 -: left knee replacement 2021 -: right hip replacement 2022 -: hernia surgery x3 -: bladder lift -: appendix - Family History Mother Medical History: Cancer Father Medical History: Cancer Brother Medical History: Stroke - Social History Smoking Status: Former smoker, Never smoker Alcohol use: No CD- Drugs: No Caffeine use: Yes Place of Residence: Home Physical Examination Temp Pulse Resp BP Pulse Ox 97.5 F 65 12 135/68 96 10/12/24 04:00 10/12/24 04:00 10/12/24 04:00 10/12/24 04:00 10/12/24 04:00
[2024-10-12 05:14] LABS: Hematocrit 36.3 % (36.0-45.0)
[2024-10-12] MEDS: ENOXAPARIN 30 MG/0.3 ML SQ SCH (05:44)
[2024-10-12] MEDS: PANTOPRAZOLE 40MG TABLET PO SCH (07:30)
[2024-10-12] MEDS: glipiZIDE 5 MG TAB PO SCH (08:08)
[2024-10-12] MEDS: lisinopriL 10 MG TAB PO SCH (08:09)
[2024-10-12] MEDS: hydroCHLOROthiazide 12.5 MG CAP PO SCH (08:09)
[2024-10-12] MEDS: GABAPENTIN 300 MG CAP PO SCH (08:09)
[2024-10-12] MEDS: METFORMIN HCL 500 MG TAB PO SCH ×2 (08:09→16:52)
[2024-10-12] MEDS: FOLIC PO SCH (08:12)
[2024-10-12] MEDS: IRON CARB PO SCH (08:12)
[2024-10-12] MEDS: VIT C PO SCH (08:12)
[2024-10-12] MEDS: VIT B12 PO SCH (08:12)
[2024-10-12] MEDS ORDERED: HOME MED 1 EA UNK (Lisinopril/Hydrochlorothiazide [Lisinopril-Hctz 10-12.5 Mg Tab] Tablet) PO SCH (09:00)
[2024-10-12] MEDS ORDERED: HOME MED 1 EA UNK (Omeprazole [Prilosec] 40 MG Capsule.Dr) PO SCH (09:00)
[2024-10-12 19:11] VITALS: BP 111/57; TEMP 98.6
== END 2024-10-12 19:25 | disposition home health service (06) ==
LOC: OR 05:29 → 2ND 09:49 → OR 10-12 19:25
PROVIDERS: ATTEND Orthopaedic Surgery
PROC: 0SRC0J9 Replacement of Right Knee Joint with Synthetic Substitute, Cemented, Open Approach (ICD-10-PCS; principal; 2024-10-11 07:00)
DX: M17.11 Unilateral primary osteoarthritis, right knee (principal); E11.9 Type 2 diabetes mellitus without complications; E78.00 Pure hypercholesterolemia, unspecified; I10 Essential (primary) hypertension; B20 Human immunodeficiency virus [HIV] disease; Z79.01 Long term (current) use of anticoagulants
CPT/HCPCS: 93005; 85025; 36415 ×2; 85610; 82947 ×8; 88305; 88311; 85730; 85018; 85014; 81003; 80053; 71046; 97116 ×2; 97139; 97161; 97530 ×3; 94010 ×2; 27447; J3490; J2704 ×4; J3475; J0360; J1100; J2003 ×2; J1650 ×2; J3010; J0171; J1171 ×2; J2405; J1815; J7120; J7030; J0690 ×3; J2250